=== PATIENT | male | born 1985 | race Caucasian/White ===

== ENCOUNTER 2024-06-26 14:33 | Emergency (ER) | payer OTHER ==
[2024-06-26] MEDS: Benzocaine 20% Topical Spray UD MUCMEM ONE (16:48)
== END 2024-06-26 17:14 | disposition home or self-care (01) ==
LOC: MW.ED 14:33
DX: K04.7 Periapical abscess without sinus (principal); Z75.8 Other problems related to medical facilities and other health care; Z90.49 Acquired absence of other specified parts of digestive tract; Z79.899 Other long term (current) drug therapy; Z79.82 Long term (current) use of aspirin; Z79.891 Long term (current) use of opiate analgesic
CPT/HCPCS: 99283; A9270